=== PATIENT | female | born 1995 | race Caucasian/White ===

== ENCOUNTER 2017-02-26 01:18 | Emergency (ER) | payer MEDICAID ==
[~2017-02-26] VITALS: Ht 172.7 cm; Wt 56.8 kg
[~2017-02-26 01:18] MED LIST: ERRIN0.35 MG PO; MOTRIN 600600 MG/TAB PO; PERCOCET 325 MG1 TA2 PO; PRENATAL1 TA1 PO
[2017-02-26 01:22] VITALS: TEMP 97.8
[2017-02-26 02:20] LABS: BASO % 0.2 % (0.0-2.0); EOS # 0.1 (0.0-0.7); EOS % 0.4 % (0-4.0); GRAN # 13.5 (1.4-6.5); GRAN % 89.9 % (42.2-75.2); HEMATOCRIT 38.9 % (35.0-45.0); HEMOGLOBIN 13.3 g/dl (12.0-15.0); LYMPH # 0.8 (1.2-3.4); LYMPH % 5.3 % (20.0-51.0); MEAN CELL VOLUME 87 fl (80.0-95.0); MEAN CORPUSCULAR HEMOGLOBIN 30 pg (26.0-32.0); MEAN CORPUSCULAR HGB CONC 34 g/dl (33.0-37.0); MEAN PLATELET VOLUME 9.6 fl (7.4-10.4); MONO # 0.6 (0.1-0.6); MONO % 3.9 % (1.7-9.3); PLATELET COUNT 279 K/mm3 (130-400); RED BLOOD COUNT 4.45 M/mm3 (4.10-5.30)
[2017-02-26 02:29] LABS: PH 6 (5-8); URINE APPEARANCE Hazy; URINE BACTERIA None Seen /hpf; URINE BILIRUBIN Negative (NEGATIVE); URINE BLOOD Negative (NEGATIVE); URINE COLOR Yellow; URINE GLUCOSE Negative (NEGATIVE); URINE KETONE 2+ (NEGATIVE); URINE RBC 0-2 /hpf; URINE UROBILINOGEN Negative (NEGATIVE); URINE WBC 0-2 /hpf
[2017-02-26 02:31] LABS: ADJUSTED CALCIUM 8.1 mg/dL (8.4-10.2); ALBUMIN 4.5 gm/dL (3.5-5.0); BILIRUBIN,TOTAL 1.1 mg/dL (0.0-1.0); CALCIUM 8.5 mg/dL (8.4-10.2); CREATININE, serum 0.68 mg/dL (0.52-1.25); POTASSIUM 3.8 mmol/L (3.4-5.0); TOTAL PROTEIN 7.2 gm/dL (6.4-8.2)
[2017-02-26 03:07] VITALS: BP 102/61; PULSE 64
== END 2017-02-26 03:08 | disposition home or self-care (01) ==
LOC: COL.ER 01:18
PROVIDERS: Physician Assistant
DX: R55 Syncope and collapse (principal); R11.2 Nausea with vomiting, unspecified
CPT/HCPCS: J2405; J7030

== ENCOUNTER → 2017-11-01 | Outpatient (CLI) | payer MEDICAID ==
[2017-11-01 23:32] LABS: HEPATITIS B SURFACE ANTIBODY 374.1 (())
== END ==
LOC: COL.LAB 16:24
PROVIDERS: Family Medicine
DX: Z23 Encounter for immunization (principal)

== ENCOUNTER → 2019-02-08 | Outpatient (CLI) | payer MEDICAID | LOC: ZCOL.LAB 17:14 | PROVIDERS: Family Medicine | DX: J02.9 Acute pharyngitis, unspecified (principal); R11.0 Nausea ==

== ENCOUNTER 2019-02-26 07:42 | Emergency (ER) | payer MEDICAID ==
[~2019-02-26] VITALS: Ht 172.7 cm; Wt 59.1 kg
[2019-02-26 07:47] VITALS: BP 111/59; TEMP 98.2
[2019-02-26] MEDS ORDERED: BIRTH CONTROL (07:50)
[2019-02-26] MEDS ORDERED: SPRINTEC 35 MCG1 TAB PO (07:58)
[2019-02-26] MEDS ORDERED: OMNICEF 300MG300 MG PO (08:02)
[2019-02-26 08:24] LABS: BASO # 0.1 (0.0-0.2); BASO % 0.8 % (0.0-2.0); EOS # 0.2 (0.0-0.7); EOS % 1.5 % (0-4.0); GRAN # 9.7 (1.4-6.5); GRAN % 77.9 % (42.2-75.2); HEMATOCRIT 40.5 % (37.0-47.0); HEMOGLOBIN 13.7 g/dl (12.5-16.0); LYMPH # 1.9 (1.2-3.4); LYMPH % 15.1 % (20.0-51.0); MEAN CELL VOLUME 88 fl (80.0-100.0); MEAN CORPUSCULAR HEMOGLOBIN 30 pg (27.0-31.0); MEAN CORPUSCULAR HGB CONC 34 g/dl (33.0-37.0); MEAN PLATELET VOLUME 9.3 fl (7.4-10.4); MONO # 0.6 (0.1-0.6); MONO % 4.4 % (1.7-9.3); PLATELET COUNT 378 K/mm3 (130-400); RED BLOOD COUNT 4.59 M/mm3 (4.10-5.30); REDCELL DISTRIBUTION WIDTH-CV 11.9 % (11.5-14.5)
[2019-02-26 08:34] LABS: ALBUMIN 4.4 gm/dL (3.5-5.0); BILIRUBIN,TOTAL 0.8 mg/dL (0.0-1.0); CALCIUM 9.4 mg/dL (8.4-10.2); CREATININE, serum 0.82 (0.52-1.25); POTASSIUM 3.8 mmol/L (3.4-5.0); TOTAL PROTEIN 7.9 gm/dL (6.4-8.2)
[2019-02-26 08:50] LABS: COLLECTION METHOD CLEAN CATCH
[2019-02-26 09:27] LABS: MUCOUS Present /lpf; PH 7 (5-8); SQUAMOUS EPITHELIAL None Seen /hpf; URINE APPEARANCE Hazy; URINE BACTERIA None Seen /hpf; URINE BILIRUBIN Negative (NEGATIVE); URINE BLOOD 2+ (NEGATIVE); URINE COLOR Amber; URINE GLUCOSE Negative (NEGATIVE); URINE KETONE Negative (NEGATIVE); URINE LEUKOCYTE ESTERASE 3+ (NEGATIVE); URINE NITRATE Positive (NEGATIVE); URINE PROTEIN(semi-quant) 1+ (NEGATIVE); URINE RBC >50 /hpf; URINE WBC >50 /hpf
[2019-02-26 10:15] VITALS: PULSE 67
== END 2019-02-26 10:15 | disposition home or self-care (01) ==
LOC: COL.ER 07:42
PROVIDERS: Emergency Medicine
DX: N12 Tubulo-interstitial nephritis, not specified as acute or chronic (principal); Z90.89 Acquired absence of other organs
CPT/HCPCS: A4216; J0696; J2405; J7030

== ENCOUNTER 2019-10-13 11:02 | Emergency (ER) | payer MEDICAID ==
[~2019-10-13] VITALS: Ht 172.7 cm; Wt 63.6 kg
[~2019-10-13 11:02] MED LIST changes: +BIRTH CONTROL; +OMNICEF 300MG300 MG PO; +SPRINTEC 35 MCG1 TAB PO
[2019-10-13] MEDS ORDERED: PRENATAL TABLET PO (11:20)
[2019-10-13 11:37] LABS: BASO % 0.3 % (0.0-2.0); EOS % 0.2 % (0-4.0); GRAN # 7.8 (1.4-6.5); GRAN % 83.4 % (42.2-75.2); HEMOGLOBIN 12.2 g/dl (12.5-16.0); LYMPH # 0.9 (1.2-3.4); LYMPH % 9.9 % (20.0-51.0); MEAN CELL VOLUME 91 fl (80.0-100.0); MEAN CORPUSCULAR HEMOGLOBIN 32 pg (27.0-31.0); MEAN CORPUSCULAR HGB CONC 35 g/dl (33.0-37.0); MEAN PLATELET VOLUME 9.3 fl (7.4-10.4); MONO # 0.6 (0.1-0.6); MONO % 5.8 % (1.7-9.3); PLATELET COUNT 219 K/mm3 (130-400); RED BLOOD COUNT 3.84 M/mm3 (4.10-5.30); REDCELL DISTRIBUTION WIDTH-CV 12.5 % (11.5-14.5)
[2019-10-13 11:44] LABS: ALBUMIN 3.8 gm/dL (3.5-5.0); BILIRUBIN,TOTAL 0.4 mg/dL (0.0-1.0); CALCIUM 8.9 mg/dL (8.4-10.2); CREATININE, serum 0.49 (0.52-1.25); POTASSIUM 3.7 mmol/L (3.4-5.0); TOTAL PROTEIN 6.9 gm/dL (6.4-8.2)
[2019-10-13 11:46] LABS: COLLECTION METHOD CLEAN CATCH
[2019-10-13 11:56] LABS: MUCOUS Present /lpf; PH 6 (5-8); SQUAMOUS EPITHELIAL 0-2 /hpf; URINE APPEARANCE Clear; URINE BACTERIA None Seen /hpf; URINE BILIRUBIN Negative (NEGATIVE); URINE BLOOD Negative (NEGATIVE); URINE COLOR Yellow; URINE GLUCOSE 1+ (NEGATIVE); URINE KETONE Negative (NEGATIVE); URINE LEUKOCYTE ESTERASE Negative (NEGATIVE); URINE NITRATE Negative (NEGATIVE); URINE PROTEIN(semi-quant) Negative (NEGATIVE); URINE RBC 0-2 /hpf; URINE UROBILINOGEN Negative (NEGATIVE)
[2019-10-13 13:28] VITALS: BP 103/67; PULSE 80; TEMP 98.4
== END 2019-10-13 13:30 | disposition home or self-care (01) ==
LOC: COL.ER 11:02
PROVIDERS: Physician Assistant
DX: O98.512 Other viral diseases complicating pregnancy, second trimester (principal); B34.9 Viral infection, unspecified; Z3A.21 21 weeks gestation of pregnancy
CPT/HCPCS: J7030

== ENCOUNTER 2020-01-11 09:30 | Outpatient (CLI) | payer MEDICAID ==
[~2020-01-11] VITALS: Ht 167.6 cm; Wt 69.5 kg
[2020-01-11 09:15] VITALS: BP 117/73; PULSE 76
[~2020-01-11 09:30] MED LIST changes: +PRENATAL TABLET PO
[2020-01-11 09:40] VITALS: BP 117/73; PULSE 86; TEMP 98.3
[2020-01-11 10:27] VITALS: PULSE 76
--- NOTE | 2020-01-11 10:28 | NUR ---
NO CHANGES. AMNIOTRACE NEGATIVE, BABY FHT 120 AND VERY ACTIVE. REPORT CALLED TO DR BENITO AND ORDERS TO DISMISS TO HOME .
--- NOTE | 2020-01-11 10:29 | NUR ---
0997 PATIENT HERE FROM HOME AND STATES HAD SOME LEAKING THIS MORNING. EFM ON FHT 120 AND BABY VERY ACTIVE. SVE 0/50/-3 AMNIOTRACE NEGATIVE. HEAD IS BALLOTABLE. ASSESSMENT COMPLETED. PATIENT DENIES OTHER NEEDS.
== END 2020-01-11 10:20 | disposition home or self-care (01) ==
LOC: LDRO 09:30
DX: O42.913 Preterm premature rupture of membranes, unspecified as to length of time between rupture and onset of labor, third trimester (principal); Z3A.34 34 weeks gestation of pregnancy

== ENCOUNTER 2020-02-12 15:26 | Inpatient (IN) | payer MEDICAID ==
[~2020-02-12] VITALS: Ht 167.6 cm; Wt 75.0 kg
[2020-02-12] VITALS (29 sets, daily range): BP systolic 91–128; BP diastolic 50–74; PULSE 68–110; TEMP 97.5–98.2
--- NOTE | 2020-02-12 15:10 | NUR ---
Pt arrives on unit ambulatory with FOB. States contractions that have increased in duration and intensity overnight with bloody show. Denies LOF. GFM noted. Changed into clean gown. EFM and toco applied. VSS. SVE per this RN /-2 with BBOWI. Admission assessment completed. Dr. Hyde notified. Orders for admission. Pt updated on POC. Safety reviewed. IV started in LH. Labs drawn. Consents signed. 1600-Reactive FHR strip obtained. Pt taken off monitors to BB.
[2020-02-12 16:33] LABS: BASO # 0.1 (0.0-0.2); BASO % 0.3 % (0.0-2.0); EOS # 0.1 (0.0-0.7); EOS % 0.3 % (0-4.0); GRAN # 14.7 (1.4-6.5); GRAN % 84.8 % (42.2-75.2); HEMATOCRIT 38.7 % (37.0-47.0); HEMOGLOBIN 13.2 g/dl (12.5-16.0); LYMPH # 1.7 (1.2-3.4); LYMPH % 9.6 % (20.0-51.0); MEAN CELL VOLUME 90 fl (80.0-100.0); MEAN CORPUSCULAR HEMOGLOBIN 31 pg (27.0-31.0); MEAN CORPUSCULAR HGB CONC 34 g/dl (33.0-37.0); MEAN PLATELET VOLUME 11.6 fl (7.4-10.4); MONO # 0.8 (0.1-0.6); MONO % 4.5 % (1.7-9.3); PLATELET COUNT 189 K/mm3 (130-400); RED BLOOD COUNT 4.28 M/mm3 (4.10-5.30); REDCELL DISTRIBUTION WIDTH-CV 12.9 % (11.5-14.5)
--- NOTE | 2020-02-12 17:17 | NUR ---
Pt sitting upright on EOB for epidural placement. Difficulty tracing FHR due to maternal position. RN at bedside adjusting monitors. FHR audible.
--- NOTE | 2020-02-12 20:22 | NUR ---
1999 SVE DONE WITH NO CHANGE NOTED. UPDATED DR ROLES. ORDERS RECIEVED TO START PITOCIN
--- NOTE | 2020-02-12 23:29 | NUR ---
2250 DR ROLES TO BEDSIDE, GUILLERMO REMOVED WITH 100ML IN BAG. PATIENT SETUP IN FOOTPLATES AND PREPPED, PUSHING WELL. 2255 OF MALE INFANT, 2257 SPONTANOUS DELIVERY OF PLACENTA, PITOCIN INFUSING @ 333MLS/HR, FUNDUS FIRM, APGARS 9-9-9. RT LABIAL LACERATION REPAIRED
[2020-02-13] VITALS (8 sets, daily range): BP systolic 98–122; BP diastolic 46–70; PULSE 67–90; TEMP 98–99
[2020-02-14 02:06] VITALS: BP 114/62; PULSE 65; TEMP 98.3
[2020-02-14 07:15] VITALS: BP 108/69; PULSE 74; TEMP 97.8
[2020-02-14] MEDS ORDERED: IBU600 MG PO (08:10)
== END 2020-02-14 13:20 | disposition home or self-care (01) | DRG 807 ==
LOC: LDR 15:26 → OB 15:26
PROVIDERS: Obstetrics & Gynecology; ADMIT Student in an Organized Health Care Education/Training Program
PROC: 10E0XZZ Delivery of Products of Conception, External Approach (ICD-10-PCS; principal; 2020-02-12)
PROC: 0UQMXZZ Repair Vulva, External Approach (ICD-10-PCS; 2020-02-12)
DX: O70.0 First degree perineal laceration during delivery (principal); Z37.0 Single live birth; Z3A.38 38 weeks gestation of pregnancy
CPT/HCPCS: J2405; J2590; J2791; J7120

== ENCOUNTER 2021-02-02 22:43 | Emergency (ER) | payer MEDICAID ==
[~2021-02-02] VITALS: Ht 170.2 cm; Wt 62.7 kg
[~2021-02-02 22:43] MED LIST changes: +IBU600 MG PO
[2021-02-02 23:10] LABS: COLLECTION METHOD CLEAN CATCH
[2021-02-02 23:17] LABS: PH 6 (5-8); SQUAMOUS EPITHELIAL 0-2 /hpf; URINE APPEARANCE Hazy; URINE BACTERIA None Seen /hpf; URINE BILIRUBIN Negative (NEGATIVE); URINE BLOOD Negative (NEGATIVE); URINE COLOR Yellow; URINE GLUCOSE Negative (NEGATIVE); URINE KETONE Negative (NEGATIVE); URINE LEUKOCYTE ESTERASE Negative (NEGATIVE); URINE NITRATE Negative (NEGATIVE); URINE PROTEIN(semi-quant) Negative (NEGATIVE); URINE RBC 0-2 /hpf; URINE UROBILINOGEN Negative (NEGATIVE)
[2021-02-03 01:54] VITALS: BP 119/73; PULSE 79; TEMP 98
== END 2021-02-03 01:54 | disposition home or self-care (01) ==
LOC: COL.ER 22:43
PROVIDERS: Nurse Practitioner Primary Care
DX: R10.2 Pelvic and perineal pain (principal); Z32.02 Encounter for pregnancy test, result negative

== ENCOUNTER 2021-06-08 18:58 | Emergency (ER) | payer MEDICAID ==
[~2021-06-08] VITALS: Ht 170.2 cm; Wt 59.1 kg
[2021-06-08 19:12] VITALS: TEMP 98.4
[2021-06-08] MEDS ORDERED: ZITHROMAX 250M250 MG PO (20:31)
[2021-06-08] MEDS ORDERED: PREDNISONE20 MG PO (20:31)
[2021-06-08 20:45] VITALS: BP 108/62; PULSE 81
== END 2021-06-08 20:46 | disposition home or self-care (01) ==
LOC: COL.ER 18:58
DX: J40 Bronchitis, not specified as acute or chronic (principal); Z20.822 Contact with and (suspected) exposure to COVID-19
CPT/HCPCS: J7512

== ENCOUNTER 2022-01-29 08:41 | Inpatient (IN) | payer MEDICAID ==
[~2022-01-29] VITALS: Ht 167.6 cm; Wt 81.5 kg
[2022-01-29] VITALS (36 sets, daily range): BP systolic 92–144; BP diastolic 54–86; PULSE 75–125; TEMP 97.4–98.7
[~2022-01-29 08:41] MED LIST changes: +PREDNISONE20 MG PO; +ZITHROMAX 250M250 MG PO
--- NOTE | 2022-01-29 08:45 | NUR ---
Patient ambulatory to LR4 with significant other, changed into gown, FHR/TOCO monitors placed and explained. Patient states she started bert around 0600 and have been more regular and stronger. Denies any leaking of fluid, vaginal bleeding, or decreased movement. Plan of care discussed. 0858: SVE 3-4/80/-2 0905: Patient standing at bedside, difficulty tracing contractions, patient given movement button to push when she feels contractions. 0930: Dr. Caldwell called and notified. 1000: SVE-5/-2 Dr. Caldwell called and updated. Admit orders received. 1020: IV placed in right hand, blood obtained and to lab, flushed. 1055: SVE 5-6//-2 and bulgy bag felt. Patient requesting epidural and T. Michelle TANK WELDER. LR bolus started. 1105: Patient sitting up for epidural and T.Michelle TANK WELDER at bedside. Difficulty tracing FHR due to maternal position. Test dose given at 1114 and patient tolerates well. 1118: Patient repositioned and safety precautions/plan of care discussed. 1130: Patient not comfortable and T.[place] TANK WELDER at bedside. 1210: Initial epidural not working and T. [place] TANK WELDER removes epidural catheter. Patient resting on left side and difficulty tracing FHR due maternal position. Test dose given 1220 and patient tolerates well.
[2022-01-29] MEDS ORDERED: PRENATAL TABLET PO (09:01)
[2022-01-29 10:30] LABS: BASO % 0.2 % (0.0-2.0); EOS # 0.1 K/mm3 (0.0-0.7); EOS % 0.5 % (0.0-4.0); GRAN # 15.4 K/mm3 (1.4-6.5); GRAN % 82.1 % (42.2-75.2); HEMATOCRIT 42.2 % (37.0-47.0); HEMOGLOBIN 14.5 g/dl (12.5-16.0); LYMPH # 2.2 K/mm3 (1.2-3.4); LYMPH % 11.6 % (20.0-51.0); MEAN CELL VOLUME 91 fl (80.0-100.0); MEAN CORPUSCULAR HEMOGLOBIN 31 pg (27-31); MEAN CORPUSCULAR HGB CONC 34 g/dl (33.0-37.0); MEAN PLATELET VOLUME 11.8 fl (7.4-10.4); MONO # 0.9 K/mm3 (0.1-0.6); PLATELET COUNT 242 K/mm3 (130-400); RED BLOOD COUNT 4.65 M/mm3 (4.10-5.30)
--- NOTE | 2022-01-29 12:40 | NUR ---
Dr. Caldwell at bed side assessing patient and FHR strip. SVE 6/90/-2 and AROM at this time with clear fluid noted. 1242: Patient repositioned to patrick position. 1244: Patient calls out and states that her right eye feels lazy/droopy. This RN assessing. Patient states she does not feel good and is light headed. Checks Blood pressure-68/35 and LR bolus started. Patient into supine position and wedged left. 1249: Ephedrine 10mg IV given. 1250:Blood pressure- 72/38 1252: BP-89/51 1255: BP-93/55 1258: BP-96/55, Patient states feeling slightly better. 1302: 92/54 1309: 92/54 and patient still feeling light headed. 1310: Ephedrine given IV 10mg and patient wedged right. 1312: BP-105/60, patient states feeling much better. 1318: BP-117/61 1322: BP-103/58 1332: BP-104/57 1340: BP-120/59 Will continue to monitor.
--- NOTE | 2022-01-29 16:50 | NUR ---
Patient feeling more pressure. SVE 9-/100/0 Patient vomitting. 1715:SVE- 9-10/100/+1 and patient sitting in patrick position. Dr. Caldwell called in for delivery. 1730: Dr. Caldwell at bedside and SVE 10/100 and patient set up for vaginal delivery. 1734: Patient begins pushing with contraction. 1736: Spontaneous vaginal delivery of viable male, head followed by body. to patients abdomen and Carlos Manuel Hand RN assumes care of . Cord clamped x2 by phsician and cut by patient. Cord blood obtained. 1740: Spontaneous delivery of placenta and pitocin bolus started per protocol. Fundal massage done/firm/bleeding WNL. Perineum intact and pericare done. Patient repositioned and plan of care discussed. 1820: Corine Walters RN given report and assumes care of patient.
--- NOTE | 2022-01-29 18:25 | NUR ---
1824- BEDSIDE SHIFT REPORT RECEIVED AND CARE ASSUMED. PT SITTING IN BED WITH BOYFRIEND AT BEDSIDE. SHE DENIES NEEDS AT THIS TIME. 1954- IV TO SALINE LOCK. PT ABLE TO STRAIGHT LIFT BOTH LETS. ASSISTED TO SITTING POSITION AND EPIDURAL CATHETER REMOVED CHARTED. PT ASSISTED TO AMBULATE TO BATHROOM, STEADY ON HER FEET. PT ABLE TO VOID 700ML WITHOUT DIFFICULTY. PT INSTRUCTED ON AND PERFORMS PERICARE. NORMAL LOCHIA DISCUSSED. CLEAN GOWN, PAD, AND PANTIES PROVIDED. 2009- PT AMBULATES TO ROOM 207 WITHOUT DIFFICULTY. BELONGINGS SENT WITH PT. PT ORIENTED TO ROOM AND CALL LIGHTS. PLAN OF CARE DISCUSSED AND QUESTIONS ANSWERED. PT DENIES FURTHER NEEDS AT THIS TIME.
[2022-01-30 00:30] VITALS: BP 102/64; PULSE 103; TEMP 98.2
[2022-01-30 04:30] VITALS: BP 118/74; PULSE 91; TEMP 98.2
[2022-01-30 07:45] VITALS: BP 114/82; PULSE 93; TEMP 97.9
--- NOTE | 2022-01-30 09:04 | NUR ---
Initial visit; Parents thanked [employer] for offering congratulations and God's blessings for the of their son. [employer] thanked family for choosing [place].
[2022-01-30] MEDS ORDERED: IBU800 M1 PO (09:51)
[2022-01-30 13:00] VITALS: BP 118/79; PULSE 77; TEMP 97.9
[2022-01-30 16:55] VITALS: BP 117/77; PULSE 79; TEMP 98.5
== END 2022-01-30 19:30 | disposition home or self-care (01) | DRG 807 ==
LOC: LDRO 08:41 → OB 10:05 → LDR 10:05 → OB 20:10
PROVIDERS: ADMIT Student in an Organized Health Care Education/Training Program
PROC: 10E0XZZ Delivery of Products of Conception, External Approach (ICD-10-PCS; principal; 2022-01-29)
PROC: 10907ZC Drainage of Amniotic Fluid, Therapeutic from Products of Conception, Via Natural or Artificial Opening (ICD-10-PCS; 2022-01-29)
DX: O26.893 Other specified pregnancy related conditions, third trimester (principal); Z37.0 Single live birth; Z67.11 Type A blood, Rh negative; O76 Abnormality in fetal heart rate and rhythm complicating labor and delivery; O74.6 Other complications of spinal and epidural anesthesia during labor and delivery; I95.2 Hypotension due to drugs; Z3A.40 40 weeks gestation of pregnancy; Z23 Encounter for immunization
CPT/HCPCS: J2590; J2791; J2795; J7120

== ENCOUNTER 2023-10-02 08:20 | Emergency (ER) | payer MEDICAID ==
[~2023-10-02] VITALS: Ht 172.7 cm; Wt 63.6 kg
[~2023-10-02 08:20] MED LIST changes: +IBU800 M1 PO; +TUSS PO
[2023-10-02 08:23] VITALS: BP 118/79; TEMP 97.7
[2023-10-02] MEDS ORDERED: Cyclobenzaprine 10 MG TAB PO ONE (08:45)
[2023-10-02] MEDS ORDERED: FLEXERIL 1010 MG/TAB PO (09:30)
[2023-10-02 09:36] VITALS: PULSE 78
== END 2023-10-02 09:42 | disposition home or self-care (01) ==
LOC: COL.ER 08:20
DX: M43.6 Torticollis (principal)